=== PATIENT | female | born 1965 | race Caucasian/White ===

== ENCOUNTER 2018-08-30 09:47 | Day surgery (SDC) | payer MEDICARE ==
[2018-08-30 13:02] VITALS: BMI 30.7
[2018-08-30] MEDS ORDERED: Lactated Ringer's 500 ML IV ONE (13:11)
[2018-08-30 13:30] VITALS: O2SAT 100
[2018-08-30] MEDS ORDERED: Midazolam 2 MG/2 ML VIAL ONE (13:34)
[2018-08-30] MEDS ORDERED: Propofol 10 mg/ml Inj (20 ML) ONE (13:35)
[2018-08-30 13:59] VITALS: TEMP 98
[2018-08-30 14:16] VITALS: BP 113/67; PULSE 85; RESP 14
== END 2018-08-30 15:05 | disposition home or self-care (01) ==
LOC: H.ENDO 09:47
PROVIDERS: ATTEND Internal Medicine Gastroenterology
DX: Z12.11 Encounter for screening for malignant neoplasm of colon (principal); E78.5 Hyperlipidemia, unspecified; I10 Essential (primary) hypertension; E05.90 Thyrotoxicosis, unspecified without thyrotoxic crisis or storm; G70.00 Myasthenia gravis without (acute) exacerbation; K64.8 Other hemorrhoids
CPT/HCPCS: 45378; J2001; J2250; J2704; J7120